=== PATIENT | male | born 1995 | race Caucasian/White ===

== ENCOUNTER 2023-02-15 16:31 | Emergency (ER) | payer OTHER ==
[~2023-02-15] VITALS: Ht 162.6 cm; Wt 73.0 kg
[2023-02-15 16:40] VITALS: TEMP 98.6; O2SAT 99
[2023-02-15] MEDS ORDERED: IBUPROFEN 400MG TABLET PO ONE (17:00)
[2023-02-15 17:54] VITALS: BP 122/91; PULSE 87; RESP 16
== END 2023-02-15 18:55 ==
LOC: ER 16:31
DX: S52.121A Displaced fracture of head of right radius, initial encounter for closed fracture (principal); Y08.89XA Assault by other specified means, initial encounter; Y93.89 Activity, other specified; Y92.89 Other specified places as the place of occurrence of the external cause; Y99.8 Other external cause status
CPT/HCPCS: 29125; 73080; 73130; 99284; A4565